=== PATIENT | female | born 1970 | race Caucasian/White ===

== ENCOUNTER 2016-10-27 19:14 | Inpatient (IN) ==
--- NOTE | 2016-10-27 19:54 | Emergency Department Note ---
Overdose - Differential Diagnosis Likely: intentional overdose - Medical Records Medical records reviewed: Yes I reviewed the patient's medical records. - Lab Data Lab results reviewed: Yes I reviewed the patient's lab results. Result diagrams: 10/27/16 20:17 10/27/16 20:17 Lab Results 10/27/16 10/27/16 10/27/16 Range/Units 20:17 20:17 21:00 WBC 17.6 H (4.3-11.1) K/mcL RBC 4.43 (3.82-4.97) M/mcL Hgb 12.8 (11.5-15.4) g/dL Hct 38.3 (35.3-44.9) % MCV 86.5 (83.0-100.0) fL MCH 28.9 (28.0-33.3) pg MCHC 33.4 (31.6-35.5) g/dL RDW 13.5 (11.5-14.5) % Plt Count 294 (140-400) K/mcL MPV 8.6 L (9.4-12.4) fL Immature Gran % 0.7 (0-4) % Seg Neutrophils % 86.5 % Lymphocytes % 6.9 % Monocytes % 5.4 % Eosinophils % 0.2 % Basophils % 0.3 % Neutrophils # 15.2 H (1.6-8.9) K/mcL Lymphocytes # 1.2 (0.6-4.6) K/mcL Monocytes # 0.9 (0.0-1.3) K/mcL Eosinophils # 0.0 (0.0-0.6) K/mcL Basophils # 0.1 (0.0-0.2) K/mcL Sodium 136 (136-145) mEq/L Potassium 3.7 (3.5-4.5) mEq/L Chloride 106 (98-109) mEq/L Carbon Dioxide 21 (19-29) mEq/L BUN 16 (7-20) mg/dL Creatinine 0.79 (0.57-1.11) mg/dL Est GFR ( Amer) > 60 (> 60) Est GFR (Non-Af Amer) > 60 (> 60) BUN/Creatinine Ratio 20 (6-26) Glucose 127 H (70-99) mg/dL Calculated Osmolality 285 (280-300) Calcium 9.0 (8.6-10.8) mg/dL Urine Color Yellow (Yellow) Urine Clarity Cloudy A (Clear) Urine pH 6.5 (5.0-8.0) pH Units Ur Specific [place] 1.016 (1.010-1.025) Urine Protein 100 H (Neg-Trace) mg/dL Urine Glucose (UA) 500 H (Normal) mg/dL Urine Ketones Negative (Negative) mg/dL Urine Blood Trace H (Negative) Urine Nitrite Negative (Negative) Urine Bilirubin Negative (Negative) Urine Urobilinogen Normal (Normal) mg/dL Ur Leukocyte Esterase Negative (Negative) Urine Microscopic RBC 3-5 H (0-3) per hpf Urine Microscopic WBC 30-50 H (0-3) per hpf Ur Squamous Epith Cells Many H (None-Few) per lpf Urine Bacteria None Seen (None-Few) per hpf Hyaline Casts None Seen (None-Few) per lpf Salicylates < 5.0 L (15-30) mg/dL Urine Opiates Screen (Eywbip=179) ng/mL Acetaminophen < 1.0 L (10-30) mcg/mL Ur Barbiturates Screen (Sydbhd=777) ng/mL Ur Phencyclidine Scrn (Cutoff=25) ng/mL Ur Amphetamines Screen (Dcedan=0773) ng/mL U Benzodiazepines Scrn (Sywuaj=644) ng/mL Urine Cocaine Screen (Cutoff= 300) ng/mL U Marijuana (THC) Screen (Cutoff = 50) ng/mL Ethyl Alcohol < 10 (0-10) mg/dL 10/27/16 Range/Units 21:00 WBC (4.3-11.1) K/mcL RBC (3.82-4.97) M/mcL Hgb (11.5-15.4) g/dL Hct (35.3-44.9) % MCV (83.0-100.0) fL MCH (28.0-33.3) pg MCHC (31.6-35.5) g/dL RDW (11.5-14.5) % Plt Count (140-400) K/mcL MPV (9.4-12.4) fL Immature Gran % (0-4) % Seg Neutrophils % % Lymphocytes % % Monocytes % % Eosinophils % % Basophils % % Neutrophils # (1.6-8.9) K/mcL Lymphocytes # (0.6-4.6) K/mcL Monocytes # (0.0-1.3) K/mcL Eosinophils # (0.0-0.6) K/mcL Basophils # (0.0-0.2) K/mcL Sodium (136-145) mEq/L Potassium (3.5-4.5) mEq/L Chloride (98-109) mEq/L Carbon Dioxide (19-29) mEq/L BUN (7-20) mg/dL Creatinine (0.57-1.11) mg/dL Est GFR ( Amer) (> 60) Est GFR (Non-Af Amer) (> 60) BUN/Creatinine Ratio (6-26) Glucose (70-99) mg/dL Calculated Osmolality (280-300) Calcium (8.6-10.8) mg/dL Urine Color (Yellow) Urine Clarity (Clear) Urine pH (5.0-8.0) pH Units Ur Specific [place] (1.010-1.025) Urine Protein (Neg-Trace) mg/dL Urine Glucose (UA) (Normal) mg/dL Urine Ketones (Negative) mg/dL Urine Blood (Negative) Urine Nitrite (Negative) Urine Bilirubin (Negative) Urine Urobilinogen (Normal) mg/dL Ur Leukocyte Esterase (Negative) Urine Microscopic RBC (0-3) per hpf Urine Microscopic WBC (0-3) per hpf Ur Squamous Epith Cells (None-Few) per lpf Urine Bacteria (None-Few) per hpf Hyaline Casts (None-Few) per lpf Salicylates (15-30) mg/dL Urine Opiates Screen Positive H (Dbukun=572) ng/mL Acetaminophen (10-30) mcg/mL Ur Barbiturates Screen Negative (Imnhgm=045) ng/mL Ur Phencyclidine Scrn Negative (Cutoff=25) ng/mL Ur Amphetamines Screen Positive H (Jfdxiw=5195) ng/mL U Benzodiazepines Scrn Negative (Uaufer=589) ng/mL Urine Cocaine Screen Positive H (Cutoff= 300) ng/mL U Marijuana (THC) Screen Negative (Cutoff = 50) ng/mL Ethyl Alcohol (0-10) mg/dL - Radiology Data Radiology results reviewed: Yes I reviewed the patient's radiology results. Chest X-Ray 10/27/16 20:07 IMPRESSION: No significant findings in the chest. D/ / Ray Nichols MD / Ray Nichols MD Interpreting Provider: Ray Nichols MD - EKG Data EKG attestation: Yes I reviewed and interpreted this EKG. EKG results narrative: Sinus Rhythm VR 77 BPM, NE int 191ms, QRS duration 198 ms, QT 437ms When compared to previous EKG there are: no significant changes Overdose HPI - General Chief Complaint: ED Overdose Stated Complaint: Heroin Overdose Time Seen by Provider: 10/27/16 19:23 Source: patient, EMS Limitations: no limitations Nursing Notes Reviewed: Yes Vital Signs Reviewed: Yes - History of Present Illness HPI Narrative: 46-year-old female presents following a heroin overdose. States she injected into her left forearm were. Some of his pericardium was then administered a dose of Narcan. She states that she has been trying to get into rehabilitation and so she has only been using enough to just give her hives are filled with Eric's, however her dealer told her that this dose may be stronger and she should be careful. She states that she does have a headache, mild nausea, some shortness of breath and is anxious. She denies fever, chills, abdominal pain, vomiting, diarrhea, dysuria. Patient initially denied SI/HI. During questioning of the patient's intent with her heroin use she became tearful stating "I have nowhere to go tonight." I asked again if she intended to harm herself and she states "it would not have been the worst thing." I asked again if she was suicidal and she stated yes. She denies having a plan or HI. - Related Data Home Medications Medication Instructions Recorded Confirmed No Known Home Drugs 10/28/16 10/28/16 Allergies Allergy/AdvReac Type Severity Reaction Status Date / Time No Known Allergies Allergy Verified 08/22/16 17:30 All systems ED: reviewed and negative except as stated. Past Medical History - Past Medical History Medical history: Reports: no medical history, arthritis, asthma, COPD, valvular heart disease, other Psychiatric history: Reports: anxiety, depression WASHERY BOSS history: Reports: bilateral tubal ligation - Social History Smoking Status: Current every day smoker Smokeless Tobacco Status: No Alcohol use: Reports: recent Drug use: Reports: IVDU, prescription drug abuse Physical Exam General: Alert and in no acute distress Skin: Warm, dry, intact Head: Normocephalic and atraumatic Eye: PERRLA, EOMI Neck: Supple, trachea midline and no tenderness Cardiovascular: Tachycardia with sinus rhythm, no murmur, normal perfusion, peripheral pulses equal b/l UE/LE Respiratory: CTAB, no wheezing, cough, or respiratory distress GI: Soft, nontender, nondistended. Bowel sounds present Musculoskeletal: Muscle strength, no tenderness, swelling or deformity Neuro: A&O to person, place, time and situation. No focal deficits noted on exam Psychiatric: Cooperative, anxious and tearful - General Limitations: no limitations General appearance: in no apparent distress Course Course Narrative: 46-year-old female presents following a heroin overdose. States she injected into her left forearm were. Some of his pericardium was then administered a dose of Narcan. She states that she has been trying to get into rehabilitation and so she has only been using enough to just give her hives are filled with Eric's, however her dealer told her that this dose may be stronger and she should be careful. She states that she does have a headache, mild nausea, some shortness of breath and is anxious. She denies fever, chills, abdominal pain, vomiting, diarrhea, dysuria. We will monitor the patient's VS. She is currently anxious and tearful discussing trying to get into rehab. Her exam is unremarkable. Patient initially denied SI/HI. During questioning of the patient's intent with her heroin use she became tearful stating "I have nowhere to go tonight." I asked again if she intended to harm herself and she states "it would not have been the worst thing." I asked again if she was suicidal and she stated yes. She denies having a plan or HI. Will do medical clearance workup. Reviewing the records, the patient was admitted to after suicide attempt with heroin in November 2014. UDS postitive for opioids, amphetamines and cocaine. UA shows UTI, will give a dose of keflex. Patient is otherwise medically clear. [facility] has evaluated her and has accepted for admission to . - Reevaluation(s) Reevaluation #1: Patient sleeping in cot. [facility] aware of patient. Time: 23:30 Vital Signs Temperature 98.8 F 10/27/16 19:15 Pulse Rate 108 10/27/16 19:15 Respiratory Rate 16 10/27/16 19:15 Blood Pressure 128/91 10/27/16 19:15 O2 Sat by Pulse Oximetry 97 10/27/16 19:15 Temperature 98.6 F 10/28/16 02:00 Pulse Rate 80 10/28/16 02:00 Respiratory Rate 16 10/28/16 02:00 Blood Pressure 107/79 10/28/16 02:00 O2 Sat by Pulse Oximetry 96 10/27/16 19:47 Oxygen Delivery Oxygen Delivery Room Air Disposition Clinical Impression: Suicidal ideation Drug overdose Qualifiers: Encounter type: initial encounter Injury intent: accidental or unintentional Qualified Code(s): T50.901A - Poisoning by unspecified drugs, medicaments and biological substances, accidental (unintentional), initial encounter UTI (urinary tract infection) Qualifiers: Urinary tract infection type: acute cystitis Hematuria presence: without hematuria Qualified Code(s): N30.00 - Acute cystitis without hematuria Disposition: Admitted As Inpatient Condition: Good Time of Disposition: 02:15 Attestation Statement - Attestation Attestation: For this encounter, I have reviewed the resident, PROTOTYPE ENGINEER MANAGER, or PA documentation, treatment plan, and medical decision making; and I have had face to face time with this patient. 46-year-old female brought in by EMS after overdose. She responded to 4 mg of intranasal Narcan. Patient states that she was using heroin to try to avoid having withdrawal and ended up taking too much. Patient initially denied suicidal ideation or homicidal ideation however after repeated questioning she states that she often does have suicidal thoughts. Patient was evaluated by piping design specialist after being medically cleared. They recommended she be admitted to the hospital for further care and evaluation.
[2016-10-27 20:26] LABS: Basophils # 0.1 K/mcL (0.0-0.2); Basophils % 0.3 %; Eosinophils % 0.2 %; Hematocrit 38.3 % (35.3-44.9); Hemoglobin 12.8 g/dL (11.5-15.4); Immature Granulocytes % 0.7 % (0-4); Lymphocytes # 1.2 K/mcL (0.6-4.6); Lymphocytes % 6.9 %; Mean Corpuscular HGB Conc 33.4 g/dL (31.6-35.5); Mean Corpuscular Hemoglobin 28.9 pg (28.0-33.3); Mean Corpuscular Volume 86.5 fL (83.0-100.0); Mean Platelet Volume 8.6 fL (9.4-12.4); Monocytes # 0.9 K/mcL (0.0-1.3); Monocytes % 5.4 %; Neutrophils # 15.2 K/mcL (1.6-8.9); Platelet Count 294 K/mcL (140-400); Red Blood Count 4.43 M/mcL (3.82-4.97); Red Cell Distribution Width 13.5 % (11.5-14.5); Segmented Neutrophils % 86.5 %
[2016-10-27 20:41] LABS: BUN/Creatinine Ratio 20 (6-26); Blood Urea Nitrogen 16 mg/dL (7-20); Carbon Dioxide 21 mEq/L (19-29); Chloride 106 mEq/L (98-109); Glucose 127 mg/dL (70-99); Osmolality,Calculated 285 (280-300); Potassium 3.7 mEq/L (3.5-4.5); Sodium 136 mEq/L (136-145); eGFR For African Americans > 60 (> 60); eGFR For Non-African Americans > 60 (> 60)
[2016-10-27 20:44] LABS: Acetaminophen < 1.0 mcg/mL (10-30); Ethanol < 10 mg/dL (0-10); Salicylate < 5.0 mg/dL (15-30)
[2016-10-27 21:18] LABS: Amphetamine Screen,Urine Positive ng/mL (Cutoff=1000); Barbiturate Screen,Urine Negative ng/mL (Cutoff=200); Benzodiazepines Screen,Urine Negative ng/mL (Cutoff=200); Bilirubin,Urine Negative (Negative); Blood,Urine Trace (Negative); Cannabinoid Screen,Urine Negative ng/mL (Cutoff = 50); Clarity,Urine Cloudy (Clear); Cocaine Screen,Urine Positive ng/mL (Cutoff= 300); Color,Urine Yellow (Yellow); Glucose,Urine (UA) 500 mg/dL (Normal); Ketones,Urine Negative (Negative); Leukocyte Esterase,Urine Negative (Negative); Nitrite,Urine Negative (Negative); Opiate Screen,Urine Positive ng/mL (Cutoff=300); PH,Urine 6.5 pH Units (5.0-8.0); Phencyclidine Screen,Urine Negative ng/mL (Cutoff=25); Protein,Urine 100 mg/dL (Neg-Trace); Specific Gravity,Urine 1.016 (1.010-1.025); Urobilinogen,Urine Normal (Normal)
[2016-10-27 21:20] LABS: Bacteria,Urine None Seen per hpf (None-Few); Hyaline Casts,Urine None Seen per lpf (None-Few); Squamous Epithelial Cell,Urine Many per lpf (None-Few); WBC,Urine 30-50 per hpf (0-3)
[2016-10-27] MEDS ORDERED: cephALEXin 250 MG CAPSULE PO ONE (23:07)
[2016-10-28] MEDS ORDERED: MOM Conc 10 ML UD.LIQ PO PRN (01:55)
[2016-10-28] MEDS ORDERED: *HR* LORazepam 2 MG/ML VIAL IM PRN (01:55)
[2016-10-28] MEDS ORDERED: Haloperidol Lactate 5 MG/ML VIAL IM PRN (01:55)
[2016-10-28] MEDS ORDERED: Mag Hydrox/Al Hydrox/Simeth 30 ML UDC PO PRN (01:55)
[2016-10-28] MEDS: Nicotine 21 MG PATCH.TD24 TD SCH (08:49)
--- NOTE | 2016-10-28 10:14 | Psychiatry History & Physical ---
Date of Encounter: 10/28/16 Time of Encounter: 10:12 History of Present Illness Patient Stated Chief Complaint: Suicidal ideation Medicare Admission Attestation: For traditional Medicare patients the provided hospital inpatient services are reasonable and necessary and in the case of services not specified as inpatient -only under 42 CFR 419.22 (n), that they are appropriately provided as inpatient services in accordance 42 CFR 412.3. For Critical Access Hospital the patient may reasonably be expected to be discharged or transferred to a hospital within 96 hours after admission to the Critical Access Hospital. Admitted From: Emergency Dept History of Present Illness: Ms. Barreto is a 46 year old female presented to the emergency room complaining of suicidal ideation and reporting overdosing on her. Tox screen was positive for opiates and cocaine and amphetamine. Patient has a recent rehabilitation. Treatment but continued to use drugs and she was feeling depressed and suicidal. Past Med Surg Social Fam HX - Past Medical History Medical history: no medical history, arthritis, asthma, COPD, valvular heart disease, other - Past Psychiatric History Psychiatric history: Reports: depression, previous psychiatric hospitalization Family psychiatric history: Unknown Family History of Suicide: Unknown - Past Surgical History Surgical History: hysterectomy - Social History Smoking Status: Current every day smoker Smokeless Tobacco Status: No Alcohol use: recent Drug use: IVDU, prescription drug abuse Medications & Allergies No Known Home Drugs 10/28/16 [History] Allergies No Known Allergies Allergy (Verified 08/22/16 17:30) Review of Systems Psychiatric: Reports: depression, suicidal ideation Mental Status Exam Patient orientation: Yes Person, Yes Time, Yes Place Level of alertness: Alert Patient appearance: Unkempt, Mal-nourished Behavior: calm, cooperative, anxious Psychomotor activity: Slowed Eye contact: Minimal Contact Mood description: Depressed, Anxious Affect description: constricted, dysphoric Speech pattern: Normal rate, Normal rhythm, Normal tone, Coherent, Limited Speech volume: Normal Thought process: Linear, Goal Oriented Thought content: Yes Suicidal ideation, Yes Guilt Perceptual disturbances: No Auditory hallucinations, No Visual hallucinations Attention span: Unable to Focus Memory description: Grossly Intact Patient reliability: Questionable Historian Intelligence estimate: Average Judgment: Limited Insight: Partial Results - Vital Signs Vital signs: Temp Pulse Resp BP Pulse Ox 98.1 F 81 12 95/65 96 10/28/16 09:00 10/28/16 09:00 10/28/16 09:00 10/28/16 09:00 10/27/16 19:47 - Labs Labs: Laboratory Last Values WBC 17.6 K/mcL (4.3-11.1) H 10/27/16 20:17 RBC 4.43 M/mcL (3.82-4.97) 10/27/16 20:17 Hgb 12.8 g/dL (11.5-15.4) 10/27/16 20:17 Hct 38.3 % (35.3-44.9) 10/27/16 20:17 MCV 86.5 fL (83.0-100.0) 10/27/16 20:17 MCH 28.9 pg (28.0-33.3) 10/27/16 20: MCHC 33.4 g/dL (31.6-35.5) 10/27/16 20:17 RDW 13.5 % (11.5-14.5) 10/27/16 20:17 Plt Count 294 K/mcL (140-400) 10/27/16 20:17 MPV 8.6 fL (9.4-12.4) L 10/27/16 20:17 Immature Gran % 0.7 % (0-4) 10/27/16 20:17 Seg Neutrophils % 86.5 % 10/27/16 20:17 Lymphocytes % 6.9 % 10/27/16 20:17 Monocytes % 5.4 % 10/27/16 20:17 Eosinophils % 0.2 % 10/27/16 20:17 Basophils % 0.3 % 10/27/16 20:17 Neutrophils # 15.2 K/mcL (1.6-8.9) H 10/27/16 20:17 Lymphocytes # 1.2 K/mcL (0.6-4.6) 10/27/16 20:17 Monocytes # 0.9 K/mcL (0.0-1.3) 10/27/16 20:17 Eosinophils # 0.0 K/mcL (0.0-0.6) 10/27/16 20:17 Basophils # 0.1 K/mcL (0.0-0.2) 10/27/16 20:17 Sodium 136 mEq/L (136-145) 10/27/16 20:17 Potassium 3.7 mEq/L (3.5-4.5) 02/07/17 20:17 Chloride 106 mEq/L (98-109) 10/27/16 20:17 Carbon Dioxide 21 mEq/L (19-29) 10/27/16 20: BUN 16 mg/dL (7-20) 10/27/16 20: Creatinine 0.79 mg/dL (0.57-1.11) 10/27/16 20:17 Est GFR ( Amer) > 60 (> 60) 10/27/16 20:17 Est GFR (Non-Af Amer) > 60 (> 60) 10/27/16 20: BUN/Creatinine Ratio 20 (6-26) 10/27/16 20: Glucose 127 mg/dL (70-99) H 10/27/16 20: Calculated Osmolality 285 (280-300) 10/27/16 20: Calcium 9.0 mg/dL (8.6-10.8) 10/27/16 20:17 Urine Color Yellow (Yellow) 10/27/16 21:00 Urine Clarity Cloudy (Clear) A 10/27/16 21:00 Urine pH 6.5 pH Units (5.0-8.0) 10/27/16 21:00 Ur Specific [place] 1.016 (1.010-1.025) 10/27/16 21:00 Urine Protein 100 mg/dL (Neg-Trace) H 10/27/16 21:00 Urine Glucose (UA) 500 mg/dL (Normal) H 10/27/16 21:00 Urine Ketones Negative mg/dL (Negative) 10/27/16 21:00 Urine Blood Trace (Negative) H 10/27/16 21:00 Urine Nitrite Negative (Negative) 10/27/16 21:00 Urine Bilirubin Negative (Negative) 10/27/16 21:00 Urine Urobilinogen Normal mg/dL (Normal) 10/27/16 21:00 Ur Leukocyte Esterase Negative (Negative) 10/27/16 21:00 Urine Microscopic RBC 3-5 per hpf (0-3) H 10/27/16 21:00 Urine Microscopic WBC 30-50 per hpf (0-3) H 10/27/16 21:00 Ur Squamous Epith Cells Many per lpf (None-Few) H 10/27/16 21:00 Urine Bacteria None Seen per hpf (None-Few) 10/27/16 21:00 Hyaline Casts None Seen per lpf (None-Few) 10/27/16 21:00 Salicylates < 5.0 mg/dL (15-30) L 10/27/16 20:17 Urine Opiates Screen Positive ng/mL (Uemtrz=626) H 10/27/16 21:00 Acetaminophen < 1.0 mcg/mL (10-30) L 10/27/16 20:17 Ur Barbiturates Screen Negative ng/mL (Pyiczk=437) 10/27/16 21:00 Ur Phencyclidine Scrn Negative ng/mL (Cutoff=25) 10/27/16 21:00 Ur Amphetamines Screen Positive ng/mL (Gvblad=4636) H 10/27/16 21:00 U Benzodiazepines Scrn Negative ng/mL (Ymrhly=167) 10/27/16 21:00 Urine Cocaine Screen Positive ng/mL (Cutoff= 300) H 10/27/16 21:00 U Marijuana (THC) Screen Negative ng/mL (Cutoff = 50) 10/27/16 21:00 Ethyl Alcohol < 10 mg/dL (0-10) 10/27/16 20:17 Assessment and Plan (1) Depressive disorder Current visit: Yes Status: Acute Plan: Admit inpatient for safety and stabilization, Close observation, Suicide Precautions per unit protocol, Encourage participation in unit milieu, Group Therapy, Monitor sleep, Monitor appetite Additional Plan: will start pt on lithium and citalopram. Patient had good response to this medication until last March where she stopped taking it. Benefits and side effects discussed with the patient and she is willing to start treatment. Risks, benefits, side effects, alternatives discussed w/pt: Yes Patient agreeable to treatment: Yes Estimated Length of Stay (Days): 5 (2) Drug overdose Current visit: Yes Status: Acute Plan: Admit inpatient for safety and stabilization, Close observation, Suicide Precautions per unit protocol, Encourage participation in unit milieu, Group Therapy, Monitor sleep, Monitor appetite Risks, benefits, side effects, alternatives discussed w/pt: Yes Patient agreeable to treatment: Yes Qualifiers: Encounter type: initial encounter Injury intent: intentional self-harm Qualified Code(s): T50.902A - Poisoning by unspecified drugs, medicaments and biological substances, intentional self-harm, initial encounter
--- NOTE | 2016-10-28 10:57 | Electrocardiograph Report ---
[place] [id number] Test Date: 2016-10-27 Pat Name: Lorie Chatsworth Department: 103 Room: 1A Gender: F Spice Miller: : 1970 Requested By: Dayna Malave Order Number: [id number] Reading MD: Emilie Choudhury Measurements Intervals [place] Rate: 77 P: 72 SC: 191 QRS: 79 QRSD: 98 T: 57 QT: 437 QTc: 469 Interpretive Statements SINUS RHYTHM MINIMAL VOLTAGE CRITERIA FOR LVH, CONSIDER NORMAL VARIANT Electronically Signed On 10-28-2016 10:56:22 EST by Emilie Choudhury
[2016-10-28] MEDS: Lithium Carbonate 300 MG CAPSULE PO SCH ×2 (11:00→20:47)
[2016-10-28] MEDS: Ibuprofen 400 MG TABLET PO PRN (20:47)
[2016-10-28] MEDS: hydrOXYzine pamoate 25 MG CAPSULE PO PRN (20:47)
[2016-10-28] MEDS: *HR* LORazepam 1 MG TABLET PO PRN (21:31)
[2016-10-28] MEDS: traZODone 50 MG TABLET PO PRN (21:31)
[2016-10-29] MEDS: hydrOXYzine pamoate 25 MG CAPSULE PO PRN (00:19)
[2016-10-29] MEDS: Lithium Carbonate 300 MG CAPSULE PO SCH ×2 (09:18→20:54)
[2016-10-29] MEDS: Nicotine 21 MG PATCH.TD24 TD SCH (09:19)
--- NOTE | 2016-10-29 12:49 | Psychiatry Progress Note ---
Date of Encounter: 10/29/16 Time of Encounter: 12:47 Subjective Interval history: Patient seen for follow-up. Nursing staff reports she endorse suicidal ideation , medication compliant and concerned about living situation or placements. alcoholism worker is trying to locate rehabilitation program. Review of Systems Psychiatric: Reports: depression, suicidal ideation Objective: Exam Patient orientation: Yes Person, Yes Time, Yes Place Level of alertness: Alert Patient appearance: Appropriate, Well Groomed, Mal-nourished Behavior: calm, cooperative, anxious Psychomotor activity: Normal Eye contact: Maintains Eye Contact Mood description: Depressed, Anxious Affect description: constricted, dysphoric Speech pattern: Normal rate, Normal rhythm, Normal tone, Coherent, Limited Speech volume: Normal Thought process: Linear, Goal Oriented Thought content: Yes Suicidal ideation, Yes Guilt Perceptual disturbances: No Auditory hallucinations, No Visual hallucinations Judgment: Limited Insight: Partial Results - Vital Signs Vital Signs: Temp Pulse Resp BP Pulse Ox 98.6 F 81 18 142/101 96 10/28/16 20:51 10/29/16 00:30 10/29/16 00:30 10/29/16 00:30 10/27/16 19:47 Assessment and Plan (1) Depressive disorder Current visit: Yes Status: Acute Plan: Continue hospitalization, Close observation, Suicide Precautions per unit protocol, Encourage participation in unit milieu, Group Therapy, Monitor sleep, Monitor appetite Risks, benefits, side effects, alternatives discussed w/pt: Yes Patient agreeable to treatment: Yes (2) Drug overdose Current visit: Yes Status: Acute Plan: Continue hospitalization, Close observation, Suicide Precautions per unit protocol, Encourage participation in unit milieu, Group Therapy, Monitor sleep, Monitor appetite Risks, benefits, side effects, alternatives discussed w/pt: Yes Patient agreeable to treatment: Yes Qualifiers: Encounter type: initial encounter Injury intent: intentional self-harm Qualified Code(s): T50.902A - Poisoning by unspecified drugs, medicaments and biological substances, intentional self-harm, initial encounter Consult Discharge Plan - Plan Referrals: NO,PCP [Primary Care Provider] -
[2016-10-29] MEDS ORDERED: hydrOXYzine pamoate 25 MG CAPSULE PO PRN (13:15)
[2016-10-29] MEDS: *HR* LORazepam 1 MG TABLET PO PRN ×2 (15:37→20:55)
[2016-10-29] MEDS: traZODone 50 MG TABLET PO PRN (20:54)
[2016-10-29] MEDS: Ibuprofen 400 MG TABLET PO PRN (20:54)
[2016-10-30] MEDS: Nicotine 21 MG PATCH.TD24 TD SCH (09:08)
[2016-10-30] MEDS: Lithium Carbonate 300 MG CAPSULE PO SCH ×2 (09:09→20:55)
--- NOTE | 2016-10-30 14:58 | Psychiatry Progress Note ---
Date of Encounter: 10/30/16 Time of Encounter: 14:56 Subjective Interval history: Patient she will follow-up. Nursing staff reports she is isolating herself and not participating in activities. Social work note indicates that patient plans to be discharged to live with her daughter rather than continue residential treatment program. Outpatient follow-up plans are ongoing at this time. [place] level is 0.5 done today. Review of Systems Psychiatric: Reports: depression, suicidal ideation Objective: Exam Patient orientation: Yes Person, Yes Time, Yes Place Level of alertness: Alert Patient appearance: Appropriate, Well Groomed Behavior: calm, cooperative, anxious Psychomotor activity: Normal Eye contact: Maintains Eye Contact Mood description: Depressed, Anxious Affect description: constricted, dysphoric Speech pattern: Normal rate, Normal rhythm, Normal tone, Coherent, Limited Speech volume: Normal Thought process: Linear, Goal Oriented Thought content: Yes Suicidal ideation, Yes Guilt Perceptual disturbances: No Auditory hallucinations, No Visual hallucinations Judgment: Limited Insight: Partial Results - Vital Signs Vital Signs: Temp Pulse Resp BP Pulse Ox 98.8 F 101 18 137/98 96 10/30/16 08:42 10/30/16 08:42 10/30/16 08:42 10/30/16 08:42 10/27/16 19:47 - Drug Levels and Toxicology Drug Levels and Toxicology: Drug Levels and Toxicity 10/30/16 10:00 [place] 0.5 L - Labs Labs: Laboratory Results - last 24 hr 10/30/16 10:00 [place] 0.5 L Assessment and Plan (1) Depressive disorder Current visit: Yes Status: Acute Plan: Continue hospitalization, Close observation, Suicide Precautions per unit protocol, Encourage participation in unit milieu, Group Therapy, Monitor sleep, Monitor appetite Risks, benefits, side effects, alternatives discussed w/pt: Yes Patient agreeable to treatment: Yes (2) Drug overdose Current visit: Yes Status: Acute Plan: Continue hospitalization, Close observation, Suicide Precautions per unit protocol, Encourage participation in unit milieu, Group Therapy, Monitor sleep, Monitor appetite Risks, benefits, side effects, alternatives discussed w/pt: Yes Patient agreeable to treatment: Yes Qualifiers: Encounter type: initial encounter Injury intent: intentional self-harm Qualified Code(s): T50.902A - Poisoning by unspecified drugs, medicaments and biological substances, intentional self-harm, initial encounter Consult Discharge Plan - Plan Referrals: [facility] [Outside] - 11/05/16 10:30 am (The above appointment is with Adina Quinn, counselor at [facility]. Your first appointment will be very thorough and the total appointment time will take between two and three hours. You will be completing paperwork, meeting with a counselor and a nurse, and developing a treatment plan. You will receive follow- up appointments for on-going services , which could include counseling and community support. Please bring the following with you to your first visit to the clinic: 1) proof of household income (two consecutive pay stubs, social security award letter, bank statement , statement letter from [facility], child support statement, IRS 1040 or W2 form, or a statement from the person who financially supports you stating they help provide for your basic needs), 2) proof of residency (drivers license, a piece of mail showing your address, a statement from person you live with verifying you live at their address), 3) your social security number, and 4) your insurance card (if you have commercial insurance you must call to obtain a prior authorization number before you arrive to your first appointment). If you do not bring these items, you will not be seen.) [facility] [Outside] - 12/07/16 1:20 pm (The above appointment is with Dr. Ramires, psychiatrist. Please arrive 15 minutes early for this appointment to complete paperwork. You may contact the office regularly to check for cancellations that may allow you to be seen sooner by the psychiatric prescriber.)
[2016-10-30] MEDS: *HR* LORazepam 1 MG TABLET PO PRN ×2 (15:09→20:54)
[2016-10-30] MEDS: Ibuprofen 400 MG TABLET PO PRN (20:55)
[2016-10-30] MEDS: traZODone 50 MG TABLET PO PRN (20:55)
[2016-10-31] MEDS: Lithium Carbonate 300 MG CAPSULE PO SCH (09:47)
[2016-10-31] MEDS: Nicotine 21 MG PATCH.TD24 TD SCH (09:47)
[2016-10-31 09:50] VITALS: BP 125/91
--- NOTE | 2016-10-31 10:41 | Discharge Summary ---
Date of Encounter: 10/31/16 Time of Encounter: 10:37 Diagnosis - Discharge Diagnosis (1) Depressive disorder Status: Acute (2) Drug overdose Status: Acute Qualifiers: Encounter type: initial encounter Injury intent: intentional self-harm Qualified Code(s): T50.902A - Poisoning by unspecified drugs, medicaments and biological substances, intentional self-harm, initial encounter Medications - Discharge Medications Prescriptions: Citalopram [CeleXA] 20 mg PO DAILY #30 tablet [place] Carbonate 300 mg PO BID #60 capsule Citalopram [CeleXA] 20 mg PO DAILY #30 tablet 10/31/16 [Rx] [place] Carbonate 300 mg PO BID #60 capsule 10/31/16 [Rx] Allergies No Known Allergies Allergy (Verified 08/22/16 17:30) Results Procedures and tests throughout hospitalization: Completed Lab Orders Category Date Time Status [place] Routine Lab 10/30/16 10:00 Completed Provider Date of admission: 10/28/16 01:49 Primary care physician: PCP NO Discharging clinician: José Manuel Lawrence Assessment and Plan - Patient/Caregiver Discharge Instructions Activity: resume usual activities as tolerated Diet: regular diet - Follow up Plan Follow up with: [facility] [Outside] - 11/05/16 10:30 am (The above appointment is with Adina Quinn, counselor at [facility]. Your first appointment will be very thorough and the total appointment time will take between two and three hours. You will be completing paperwork, meeting with a counselor and a nurse, and developing a treatment plan. You will receive follow- up appointments for on-going services , which could include counseling and community support. Please bring the following with you to your first visit to the clinic: 1) proof of household income (two consecutive pay stubs, social security award letter, bank statement , statement letter from [facility], child support statement, IRS 1040 or W2 form, or a statement from the person who financially supports you stating they help provide for your basic needs), 2) proof of residency (drivers license, a piece of mail showing your address, a statement from person you live with verifying you live at their address), 3) your social security number, and 4) your insurance card (if you have commercial insurance you must call to obtain a prior authorization number before you arrive to your first appointment). If you do not bring these items, you will not be seen.) [facility] [Outside] - 12/07/16 1:20 pm (The above appointment is with Dr. Ramires, psychiatrist. Please arrive 15 minutes early for this appointment to complete paperwork. You may contact the office regularly to check for cancellations that may allow you to be seen sooner by the psychiatric prescriber.) Functional capacity at discharge: independent ambulation Overall status at discharge: Stable Disposition: Home, Self-Care Hospital Course Hospital course: Ms. Barreto is a 46 year old female admitted for depression and suicidal ideation and substance abuse and dependence. Patient also overdosed on heroin prior to admission. For details admission please see H&P On the unit patient was evaluated and started on lithium and citalopram because she had history of good response to this treatment. [place] level was 0.5 which is low therapeutic. Patient showed improvement, her sleep and appetite improved. Participated and groups and activities and worked with the social worker school on discharge plans. Prior to discharge patient was medically stable, nonsuicidal and denies any side effects of medication and look forward to stay with her daughter and grandson. - Time Spent with Patient Total time spent providing and/or coordinating discharge services: Greater than 30 minutes Quality - Multiple Antipsychotics Patient discharged on 2 or more antipsychotic medications: No Procedures - Procedures Procedures: Medication Management, Crisis Stabilization, Supportive Therapy, Group Therapy, Psychoeducational Therapy Mental Status Exam - Mental Status Exam Patient orientation: Yes Person, Yes Time, Yes Place Level of alertness: Alert Patient appearance: Appropriate, Well Groomed Behavior: calm, cooperative, anxious Psychomotor activity: Normal Eye contact: Maintains Eye Contact Mood description: Anxious Affect description: constricted, dysphoric, anxious Speech pattern: Normal rate, Normal rhythm, Normal tone, Coherent Speech Volume: Normal Thought process: Linear, Goal Oriented Thought Content: No Suicidal ideation, Yes Guilt Perceptual Disturbances: No Auditory hallucinations, No Visual hallucinations Judgment: Good Insight: Partial
== END 2016-10-31 11:40 | disposition home or self-care (01) | DRG 754 ==
LOC: EMEROO 19:14 → 1ANU 10-28 01:49
PROVIDERS: ADMIT Psychiatry & Neurology Psychiatry; ATTEND Psychiatry & Neurology Psychiatry

== ENCOUNTER 2016-12-12 03:54 | Inpatient (IN) ==
--- NOTE | 2016-12-12 04:17 | Emergency Department Note ---
Overdose - Lab Data Lab results reviewed: Yes I reviewed the patient's lab results. Lab results narrative: Short CBC 12/12/16 Range/Units 04:15 WBC 23.7 H (4.3-11.1) K/mcL Hgb 13.6 (11.5-15.4) g/dL Hct 42.1 (35.3-44.9) % Plt Count 312 (140-400) K/mcL Neutrophils # 21.5 H (1.6-8.9) K/mcL BMP 12/12/16 Range/Units 04:15 Sodium 137 (136-145) mEq/L Potassium 4.9 H (3.5-4.5) mEq/L Chloride 103 (98-109) mEq/L Carbon Dioxide 20 (19-29) mEq/L BUN 19 (7-20) mg/dL Creatinine 1.63 H (0.57-1.11) mg/dL Glucose 255 H (70-99) mg/dL Calcium 9.4 (8.6-10.8) mg/dL Liver Function 12/12/16 Range/Units 04:15 Total Bilirubin 0.4 (0.2-1.2) mg/dL Direct Bilirubin 0.3 (0.0-0.5) mg/dL AST 247 H (5-34) Units/L ALT 141 H (0-55) Units/L Alkaline Phosphatase 129 H (38-126) Units/L Albumin 3.6 (3.5-5.0) g/dL Urine 12/12/16 Range/Units 04:23 Urine Color Yellow (Yellow) Urine Clarity Turbid A (Clear) Urine pH 6.0 (5.0-8.0) pH Units Ur Specific [place] 1.018 (1.010-1.025) Urine Protein 100 H (Neg-Trace) mg/dL Urine Glucose (UA) 500 H (Normal) mg/dL Lab Results 12/12/16 Range/Units 03:56 POC Glucose 334 H (58-89) - Radiology Data Radiology results reviewed: Yes I reviewed the patient's radiology results. Chest X-Ray 12/12/16 04:36 IMPRESSION: 1. No active pulmonary disease. D/ / Vidal Nance MD / Vidal Nance MD Interpreting Provider: Vidal Nance MD - EKG Data EKG attestation: Yes I reviewed and interpreted this EKG. EKG results narrative: EKG taken 12/12/2016 at 0404 hrs. shows a sinus tachycardia with no underlying ST depressions or elevations in any leads. No QRS widening and no QT prolongation. No previous EKG for comparison. Overdose HPI - General Chief Complaint: ED Overdose Stated Complaint: OD Time Seen by Provider: 12/12/16 04:16 Nursing Notes Reviewed: Yes Vital Signs Reviewed: Yes - History of Present Illness HPI Narrative: Patient is a 46-year-old female presents to the emergency department unresponsive secondary to possible overdose. Patient has signs of IV drug use with track lopez up the arms. Unclear as to what patient obtained this evening EMS states patient received 2 mg of Narcan patient's responded and was alert and oriented 3. Patient did became unresponsive again and is having periodic shaking but is maintaining her airway. Making moaning sounds. - Related Data Previous Rx's Medication Instructions Recorded Citalopram [CeleXA] 20 mg PO DAILY #30 tablet 10/31/16 [place] Carbonate 300 mg PO BID #60 capsule 10/31/16 Allergies Allergy/AdvReac Type Severity Reaction Status Date / Time No Known Allergies Allergy Verified 08/22/16 17:30 Limitations: ROS unobtainable due to patients medical condition Past Medical History - Past Medical History Source: unable to obtain Medical history: Reports: no medical history, arthritis, asthma, COPD, valvular heart disease, other Surgical history: Reports: hysterectomy Psychiatric history: Reports: depression, previous psychiatric hospitalization 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: Reports: bilateral tubal ligation - Social History Smoking Status: Current every day smoker Smokeless Tobacco Status: No Alcohol use: Reports: recent Drug use: Reports: IVDU, prescription drug abuse Physical Exam - General Limitations: altered mental status - Head Head exam: atraumatic, normocephalic, normal inspection - Eye Eye exam: Present: PERRL - ENT ENT exam: normal exam, mucous membranes dry - Neck Neck exam: Present: normal inspection, trachea midline - Chest Chest inspection: Present: normal inspection, symmetric chest wall rise - Respiratory Respiratory exam: Present: normal lung sounds bilaterally. Absent: wheezes - Cardiovascular Cardiovascular exam: Present: normal rhythm, tachycardia - Abdominal Exam Abdominal exam: Present: soft Course - Reevaluation(s) Reevaluation #1: 46-year-old female brought in for unintentional overdose. Patient. Her somnolence resolved with 2 mg of Narcan was a alert and oriented 3 but then became somnolent once again. Once arrived at the ED patient maintained somnolence but initially was patent patient was breathing clearly. Pupils reactive not pinpoint as well. Patient received 2 more milligrams of Narcan but has not improved. Patient having periodic full body shakes. Time: 04:31 Reevaluation #2: Patient receiving a third Narcan bolus. Time: 05:08 Reevaluation #3: She continues to maintain her airway well and does not require intubation at this time. Patient did wake up after a third bolus of Narcan. Patient then went back to sleep. Patient stopped shaking. Patient still receiving IV boluses. Labs show elevated white count of 23.7 with a previous of 17.6. AST and ALT 247 and 141 respectively, lactate acid 0.4, patient's urine shows evidence of urinary urine but no signs of urinary tract infection. Urine tox positive for opioids and cocaine negative for acetaminophen and salicylate acid. Recommend admission for observation until patient clears toxins out of her system. Discussed patient with Dr. Cam who accepted patient for admission Time: 06:03 - Consultations Consultation #1: Dr. Cam has accepted for admission Time: 05:58 Vital Signs Temperature 98.1 F 12/12/16 04:04 Pulse Rate 111 12/12/16 04:04 Respiratory Rate 24 12/12/16 04:04 Blood Pressure 137/125 12/12/16 04:04 O2 Sat by Pulse Oximetry 97 12/12/16 04:04 Temperature 98.1 F 12/12/16 04:04 Pulse Rate 111 12/12/16 04:04 Respiratory Rate 24 12/12/16 04:04 Blood Pressure 137/125 12/12/16 04:04 O2 Sat by Pulse Oximetry 97 12/12/16 04:04 Oxygen Delivery Oxygen Delivery Room Air Disposition Clinical Impression: Lactic acidosis, Tachycardia Altered mental status Qualifiers: Altered mental status type: somnolence Qualified Code(s): R40.0 - Somnolence Overdose Qualifiers: Encounter type: initial encounter Injury intent: intentional self-harm Qualified Code(s): T50.902A - Poisoning by unspecified drugs, medicaments and biological substances, intentional self-harm, initial encounter Disposition: Admitted As Inpatient Condition: Fair Forms: ED Satisfaction Letter Time of Disposition: 06:05
[2016-12-12 04:22] LABS: Basophils # 0.1 K/mcL (0.0-0.2); Basophils % 0.3 %; Eosinophils % 0.1 %; Hematocrit 42.1 % (35.3-44.9); Hemoglobin 13.6 g/dL (11.5-15.4); Immature Granulocytes % 1.4 % (0-4); Lymphocytes # 1.1 K/mcL (0.6-4.6); Lymphocytes % 4.6 %; Mean Corpuscular HGB Conc 32.3 g/dL (31.6-35.5); Mean Corpuscular Volume 89.8 fL (83.0-100.0); Mean Platelet Volume 8.8 fL (9.4-12.4); Monocytes # 0.7 K/mcL (0.0-1.3); Monocytes % 3.1 %; Platelet Count 312 K/mcL (140-400); Red Blood Count 4.69 M/mcL (3.82-4.97); Red Cell Distribution Width 13.6 % (11.5-14.5); Segmented Neutrophils % 90.5 %
[2016-12-12 04:25] LABS: Neutrophils # 21.5 K/mcL (1.6-8.9)
[2016-12-12] MEDS ORDERED: 0.9 % Sodium Chloride 1,000 ML ONE (04:28)
[2016-12-12 04:32] LABS: Bilirubin,Urine Negative (Negative); Blood,Urine Small (Negative); Clarity,Urine Turbid (Clear); Color,Urine Yellow (Yellow); Glucose,Urine (UA) 500 mg/dL (Normal); Ketones,Urine Negative (Negative); Leukocyte Esterase,Urine Negative (Negative); Nitrite,Urine Negative (Negative); Protein,Urine 100 mg/dL (Neg-Trace); Specific Gravity,Urine 1.018 (1.010-1.025); Urobilinogen,Urine Normal (Normal)
[2016-12-12] MEDS: 0.9 % Sodium Chloride 1,000 ML IVC SCH ×4 (04:33→14:04)
[2016-12-12 04:35] LABS: Bacteria,Urine Many per hpf (None-Few); Hyaline Casts,Urine Moderate per lpf (None-Few); RBC,Urine 0-3 per hpf (0-3); Squamous Epithelial Cell,Urine Many per lpf (None-Few); WBC,Urine 50-100 per hpf (0-3)
[2016-12-12 04:39] LABS: Amphetamine Screen,Urine Negative ng/mL (Cutoff=1000); Barbiturate Screen,Urine Negative ng/mL (Cutoff=200); Benzodiazepines Screen,Urine Negative ng/mL (Cutoff=200); Cannabinoid Screen,Urine Negative ng/mL (Cutoff = 50); Cocaine Screen,Urine Positive ng/mL (Cutoff= 300); Opiate Screen,Urine Positive ng/mL (Cutoff=300); Phencyclidine Screen,Urine Negative ng/mL (Cutoff=25)
[2016-12-12 04:41] LABS: Acetaminophen < 1.0 mcg/mL (10-30); Ethanol < 10 mg/dL (0-10); Salicylate < 5.0 mg/dL (15-30)
[2016-12-12 04:45] LABS: Platelet Estimate Normal (Normal)
[2016-12-12] MEDS ORDERED: Naloxone 0.4 MG/ML INJ IVP PRN ×2 (04:46→09:31)
[2016-12-12 04:50] LABS: Alanine Aminotransferase 141 Units/L (0-55); Albumin 3.6 g/dL (3.5-5.0); Albumin/Globulin Ratio 0.7 (1.1-2.2); Alkaline Phosphatase 129 Units/L (38-126); Aspartate Amino Transferase 247 Units/L (5-34); BUN/Creatinine Ratio 12 (6-26); Bilirubin,Direct 0.3 mg/dL (0.0-0.5); Bilirubin,Indirect 0.1 mg/dL (0.0-1.2); Bilirubin,Total 0.4 mg/dL (0.2-1.2); Blood Urea Nitrogen 19 mg/dL (7-20); Calcium 9.4 mg/dL (8.6-10.8); Carbon Dioxide 20 mEq/L (19-29); Chloride 103 mEq/L (98-109); Globulin 4.9 g/dL (2.4-3.5); Glucose 255 mg/dL (70-99); Osmolality,Calculated 295 (280-300); Sodium 137 mEq/L (136-145); Total Protein 8.5 g/dL (6.0-8.3); eGFR For African Americans 42 (> 60); eGFR For Non-African Americans 34 (> 60)
[2016-12-12 04:55] LABS: Potassium 4.9 mEq/L (3.5-4.5)
[2016-12-12] MEDS ORDERED: Naloxone 2 MG in 0.9 % Sodium Chloride 500 ML IVC SCH (05:07)
[2016-12-12] MEDS ORDERED: *HR* LORazepam 2 MG/ML VIAL IVP ONE (06:22)
[2016-12-12] MEDS ORDERED: *HR* HYDROcodone/Acet 5/325 mg TABLET PO ONE (06:23)
[2016-12-12] MEDS ORDERED: SODIUM CHLORIDE 0.9% IVC ONE (06:31)
[2016-12-12] MEDS ORDERED: NALOXONE IVC ONE (06:31)
[2016-12-12] MEDS: SODIUM CHLORIDE 0.9% IVC SCH ×3 (09:00→21:13)
[2016-12-12] MEDS: NALOXONE IVC SCH ×3 (09:00→21:13)
[2016-12-12] MEDS ORDERED: *HR* Promethazine 25 MG/ML VIAL IVP PRN (09:31)
[2016-12-12] MEDS ORDERED: Acetaminophen 325 MG TABLET PO PRN (09:31)
--- NOTE | 2016-12-12 09:41 | Internal Med History&Physical ---
Date of Encounter: 12/12/16 Time of Encounter: 09:37 Assessment and Plan (1) Heroin overdose Current visit: Yes Status: Acute I will increase the Narcan drip to 200 mL per hour which equates to 2 mg of Narcan per hour. We will monitor him on mental status closely. Monitor vital signs closely. Aspiration precautions. Patient is at high risk for morbidity and mortality and complications and may need to be intubated for airway protection or respiratory failure due to drug overdose and treatment with IV opiates. Qualifiers: Encounter type: initial encounter Injury intent: accidental or unintentional Qualified Code(s): T40.1X1A - Poisoning by heroin, accidental ( unintentional), initial encounter (2) Cocaine abuse Current visit: Yes Status: Acute Cardiac monitoring. Avoid beta blockers. Social or work consult for counseling on discharge. (3) Metabolic encephalopathy Current visit: Yes Status: Acute Secondary to drug use. We will monitor mental status closely. Avoid sedatives. (4) Elevated LFTs Current visit: Yes Status: Acute Her medical record reviewed in June 2016 her LFTs were normal. I suspect given her IV drug use that she might have acquired viral hepatitis. I will check hepatitis panel. (5) Hyperkalemia Current visit: Yes Status: Acute We will treat this with IV fluids. (6) Acute kidney injury Current visit: Yes Status: Acute IV normal saline. Monitor BUN and creatinine. Monitor urine output. [place] catheter. Avoid nephrotoxins. (7) DVT prophylaxis Current visit: Yes Status: Acute Subcutaneous heparin. (8) Lactic acidosis Current visit: Yes Status: Acute We will treat this with IV fluids and recheck lactate. There is no evidence of sepsis. Internal Medicine - H&P: HPI Chief complaint: Altered mental status Admitted From: Emergency Dept Plans for Post Hospital Care: Home History of present illness: Ms. Barreto is a 46 year old female with past medical history significant for depression, arthritis and polysubstance abuse who was brought to the hospital by ambulance for altered mental status. She is currently awake and oriented and interactive however she does not have good recollection of the events yesterday. She says that she has been drug free since October up until yesterday when she showed up at dose of heroin and cocaine and cannot remember what happened afterwards. Per ED records she was brought unresponsive by EMS. She was given Narcan nasal in the ambulance. She was given additional 4 mg of Narcan in the emergency department and she had a good response to the Narcan. She was responsive and awake for a brief period after which she became somnolent and unresponsive. She was started on a Narcan drip. A 10 point review of systems is positive for depression and chronic joint pain secondary to arthritis otherwise negative. Family history positive for multiple cancers in the patient's father including pancreatic cancer, colon cancer and lung cancer. Social history: She has a history of heroin use, prescription pill abuse, cocaine abuse, she has a reported history of alcohol abuse however she states that she drinks occasionally only. She smokes 20 cigarettes a day. Past Med Surg Social Fam HX - Past Medical History Medical history: no medical history, arthritis, asthma, COPD, valvular heart disease, other Psychiatric history: depression, previous psychiatric hospitalization - Past Surgical History Surgical History: hysterectomy - Social History Smoking Status: Current every day smoker Smokeless Tobacco Status: No Alcohol use: recent Drug use: IVDU, prescription drug abuse Internal Medicine - H&P: Meds Citalopram [CeleXA] 20 mg PO DAILY #30 tablet 10/31/16 [Rx] [place] Carbonate 300 mg PO BID #60 capsule 10/31/16 [Rx] Allergies No Known Allergies Allergy (Verified 08/22/16 17:30) All Systems PM: A 10-system review of systems was performed and is negative for pertinent findings except as documented above in the HPI. - Constitutional Vitals: Temp Pulse Resp BP Pulse Ox 97.8 F 101 22 100/74 94 L 12/12/16 07:35 12/12/16 07:35 12/12/16 07:35 12/12/16 07:35 12/12/16 07:35 General appearance: Present: A&O X 3 Exam: The patient was initially unresponsive, after initiating Narcan infusion she aroused and was able to interact - Eye Eye exam: Present: PERRL, conjuntiva pink, sclera anicteric Pupils: Present: PERRL - Respiratory Respiratory exam: Present: CTAB. Absent: accessory muscle use, rales, rhonchi, wheezes - Cardiovascular Cardiovascular exam: Present: RRR, +S1, +S2. Absent: diastolic murmur, gallop, rubs, systolic murmur - GI/Abdominal GI/Abdominal exam: Present: normal bowel sounds, soft, no peritoneal signs. Absent: distended, tenderness - Extremities Exam Extremities exam: Present: warm, radial pulses palpable and symetrical. Absent : calf tenderness, cyanotic, pedal edema - Neurological Exam Neurological exam: Present: CN II-XII intact, oriented X3, no focal deficits. Absent: facial droop, speech deficit - Skin Skin exam: Present: dry, intact Internal Med - H&P Results - Labs CBC & Chem 7: 12/12/16 04:15 12/12/16 04:15
[2016-12-12 10:20] LABS: VBG HCO3 25.4 mEq/L (21-27); VBG PH 7.34 pH Units (7.32-7.42)
[2016-12-12 10:23] LABS: Basophils % 0.2 %; Eosinophils % 0.1 %; Hematocrit 33.8 % (35.3-44.9); Hemoglobin 11.3 g/dL (11.5-15.4); Immature Granulocytes % 0.5 % (0-4); Lymphocytes # 2.8 K/mcL (0.6-4.6); Lymphocytes % 13.6 %; Mean Corpuscular HGB Conc 33.4 g/dL (31.6-35.5); Mean Corpuscular Hemoglobin 29.3 pg (28.0-33.3); Mean Corpuscular Volume 87.6 fL (83.0-100.0); Mean Platelet Volume 8.9 fL (9.4-12.4); Monocytes # 1.2 K/mcL (0.0-1.3); Monocytes % 5.8 %; Neutrophils # 16.4 K/mcL (1.6-8.9); Platelet Count 241 K/mcL (140-400); Red Blood Count 3.86 M/mcL (3.82-4.97); Red Cell Distribution Width 13.8 % (11.5-14.5); Segmented Neutrophils % 79.8 %
[2016-12-12 10:31] LABS: BUN/Creatinine Ratio 22 (6-26); Blood Urea Nitrogen 17 mg/dL (7-20); Calcium 8.4 mg/dL (8.6-10.8); Carbon Dioxide 23 mEq/L (19-29); Chloride 109 mEq/L (98-109); Glucose 75 mg/dL (70-99); Osmolality,Calculated 286 (280-300); Potassium 4.7 mEq/L (3.5-4.5); Sodium 138 mEq/L (136-145); eGFR For African Americans > 60 (> 60); eGFR For Non-African Americans > 60 (> 60)
[2016-12-12 15:58] LABS: Hepatitis B Surface Antigen Nonreactive (Nonreactive)
[2016-12-12] MEDS: *HR* Heparin 5,000 UNIT/ML VIAL SQ SCH (17:37)
[2016-12-12] MEDS ORDERED: Ibuprofen 400 MG TABLET PO PRN (17:45)
[2016-12-12] MEDS ORDERED: Famotidine 20 MG/2 ML VIAL IVP SCH (18:00)
[2016-12-13] MEDS ORDERED: NALOXONE IVC SCH (04:00)
[2016-12-13] MEDS ORDERED: SODIUM CHLORIDE 0.9% IVC SCH (04:00)
[2016-12-13 06:08] LABS: Basophils % 0.4 %; Eosinophils # 0.1 K/mcL (0.0-0.6); Eosinophils % 0.8 %; Hematocrit 31.7 % (35.3-44.9); Hemoglobin 10.3 g/dL (11.5-15.4); Immature Granulocytes % 0.6 % (0-4); Lymphocytes # 2.3 K/mcL (0.6-4.6); Lymphocytes % 20.5 %; Mean Corpuscular HGB Conc 32.5 g/dL (31.6-35.5); Mean Corpuscular Hemoglobin 28.4 pg (28.0-33.3); Mean Corpuscular Volume 87.3 fL (83.0-100.0); Mean Platelet Volume 8.9 fL (9.4-12.4); Monocytes # 0.8 K/mcL (0.0-1.3); Neutrophils # 7.9 K/mcL (1.6-8.9); Platelet Count 233 K/mcL (140-400); Red Blood Count 3.63 M/mcL (3.82-4.97); Red Cell Distribution Width 13.8 % (11.5-14.5); Segmented Neutrophils % 70.7 %
[2016-12-13 06:20] LABS: Alanine Aminotransferase 80 Units/L (0-55); Albumin/Globulin Ratio 0.8 (1.1-2.2); Alkaline Phosphatase 88 Units/L (38-126); Aspartate Amino Transferase 54 Units/L (5-34); BUN/Creatinine Ratio 9 (6-26); Bilirubin,Total 0.4 mg/dL (0.2-1.2); Blood Urea Nitrogen 7 mg/dL (7-20); Calcium 8.4 mg/dL (8.6-10.8); Carbon Dioxide 20 mEq/L (19-29); Chloride 112 mEq/L (98-109); Globulin 3.4 g/dL (2.4-3.5); Glucose 175 mg/dL (70-99); Magnesium 1.7 mg/dL (1.6-2.6); Osmolality,Calculated 292 (280-300); Potassium 3.8 mEq/L (3.5-4.5); Sodium 140 mEq/L (136-145); eGFR For African Americans > 60 (> 60); eGFR For Non-African Americans > 60 (> 60)
[2016-12-13 06:21] LABS: Albumin 2.6 g/dL (3.5-5.0)
[2016-12-13] MEDS: *HR* Heparin 5,000 UNIT/ML VIAL SQ SCH (06:21)
[2016-12-13] MEDS ORDERED: Famotidine 20 MG/2 ML VIAL IVP SCH (09:00)
[2016-12-13] MEDS ORDERED: Nicotine 21 MG PATCH.TD24 TD SCH (09:00)
[2016-12-13 12:56] VITALS: BP 128/86
--- NOTE | 2016-12-13 13:00 | Discharge Summary ---
Date of Encounter: 12/13/16 Time of Encounter: 12:58 - Discharge Diagnosis (1) Heroin overdose Priority: Primary Status: Acute Qualifiers: Encounter type: initial encounter Injury intent: accidental or unintentional Qualified Code(s): T40.1X1A - Poisoning by heroin, accidental ( unintentional), initial encounter (2) Cocaine abuse Priority: Secondary Status: Acute (3) Metabolic encephalopathy Priority: Secondary Status: Acute (4) Elevated LFTs Priority: Secondary Status: Acute (5) Hyperkalemia Priority: Secondary Status: Acute (6) Acute kidney injury Priority: Secondary Status: Acute (7) DVT prophylaxis Priority: Secondary Status: Acute (8) Lactic acidosis Priority: Secondary Status: Acute - Discharge Medications Prescriptions: Citalopram [CeleXA] 20 mg PO DAILY #30 tablet [place] Carbonate 300 mg PO BID #60 capsule Home Medications: Ibuprofen 800 mg PO BID 12/12/16 [History] Loratadine [Claritin] 10 mg PO DAILY 12/12/16 [History] Citalopram [CeleXA] 20 mg PO DAILY #30 tablet 12/13/16 [Rx] [place] Carbonate 300 mg PO BID #60 capsule 12/13/16 [Rx] Allergies/Adverse Reactions: Allergies No Known Allergies Allergy (Verified 08/22/16 17:30) Date of admission: 12/12/16 10:15 Primary care physician: PCP NO - Patient Status Disposition: Left Against Medical Advice Condition: Fair Functional capacity at discharge: independent ambulation Overall status at discharge: patient is back to baseline - Discharge Instructions Follow Up With: NO,PCP [Primary Care Provider] - Hospital course: Ms. Barreto is a 46 year old female with past medical history significant for depression, arthritis and polysubstance abuse who was brought to the hospital by ambulance for altered mental status. She is currently awake and oriented and interactive however she does not have good recollection of the events yesterday. She says that she has been drug free since October up until yesterday when she showed up at dose of heroin and cocaine and cannot remember what happened afterwards. Per ED records she was brought unresponsive by EMS. She was given Narcan nasal in the ambulance. She was given additional 4 mg of Narcan in the emergency department and she had a good response to the Narcan. She was responsive and awake for a brief period after which she became somnolent and unresponsive. She was started on a Narcan drip. Hospital course: Patient's mental status improved with Narcan drip. She was maintained on Narcan drip for 24 hours. This was discontinued this morning. She is awake alert oriented 3. Her vital signs are within normal limits. She asks to be discharged home, however due to her near lethal overdose of heroin and I would like for her to be evaluated by social work can be offered the option to be transferred to inpatient rehabilitation. I have explained that she is at high risk for relapse with possible fatal consequences which she accepts and asks to sign out AGAINST MEDICAL ADVICE. She certainly has the capacity to make her decisions regarding her care and therefore she sign a AMA papers. I will give her prescriptions for her antidepressants which she received on discharge 6 weeks ago from our [facility] however she did not renew her prescriptions. - Time Spent with Patient Total time spent providing and/or coordinating discharge services: - Constitutional Vitals: Temp Pulse Resp BP Pulse Ox 98.2 F 88 18 128/86 98 12/13/16 12:00 12/13/16 12:00 12/13/16 12:00 12/13/16 12:00 12/13/16 12:00 General appearance: Present: A&O X 3, answers questions appropriately - Neck Neck exam general surgery: Present: supple, trachea midline. Absent: lymphadenopathy - Respiratory Respiratory exam: Present: CTAB. Absent: accessory muscle use, rales, rhonchi, wheezes - Cardiovascular Cardiovascular exam: Present: RRR, +S1, +S2. Absent: diastolic murmur, gallop, rubs, systolic murmur
--- NOTE | 2016-12-13 22:55 | Electrocardiograph Report ---
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
[2016-12-14 11:11] LABS: Hepatitis A Antibody IgM Nonreactive (Nonreactive); Hepatitis B Core IgM Nonreactive (Nonreactive)
[2016-12-14 11:13] LABS: Hepatitis C Virus Antibody Reactive (Nonreactive)
== END 2016-12-13 13:20 | disposition left against medical advice (07) | DRG 816 ==
LOC: EMEROO 03:54 → 2NNU 03:54
PROVIDERS: ADMIT Internal Medicine; ATTEND Nurse Practitioner Family